=== PATIENT | female | born 1960 | race Caucasian/White ===

== ENCOUNTER 2024-10-15 21:53 | Inpatient (IN) | payer BC, OTHER ==
[~2024-10-15] VITALS: Ht 162.6 cm; Wt 99.4 kg
[2024-10-15] MEDS ORDERED: ALBUTEROL SULFATE 2.5 MG/3 ML NEBU ONE (22:48)
[2024-10-15 22:52] LABS: BASOPHILS # (AUTO) 0.1 K/UL (0.0-0.2); BASOPHILS % (AUTO) 0.6 % (0.0-2.0); EOSINOPHILS # (AUTO) 0.3 K/uL (0.0-0.7); EOSINOPHILS % (AUTO) 3.1 % (0.0-7.0); HEMOGLOBIN 13.3 g/dL (10.9-14.3); LYMPHOCYTES # (AUTO) 1.8 K/uL (0.8-4.8); LYMPHOCYTES % (AUTO) 16.2 % (20.5-51.5); MEAN CORPUSCULAR HEMOGLOBIN 29.2 uug (24.7-32.8); MEAN CORPUSCULAR HGB CONC 34 g/dL (32.3-35.6); MEAN CORPUSCULAR VOLUME 85.6 fL (75.5-95.3); MONOCYTES # (AUTO) 0.7 K/uL (0.1-1.30); MONOCYTES % (AUTO) 6.1 % (0.0-11.0); NEUTROPHILS # (AUTO) 8.4 K/uL (1.8-8.9); PLATELET COUNT (AUTO) 272 K/uL (179-408); RED BLOOD CELL COUNT(AUTO) 4.56 MIL/uL (3.63-4.92); WHITE BLOOD COUNT (AUTO) 11.3 K/uL (3.8-11.8)
[2024-10-15 22:54] LABS: DIFFERENTIAL COMMENT 1
[2024-10-15 23:01] LABS: CALCIUM 8.9 mg/dL (8.5-10.1); CREATININE 0.8 mg/dL (0.6-1.3); POTASSIUM 3.2 mmol/L (3.5-5.1)
[2024-10-15 23:05] VITALS: O2SAT 93
[2024-10-15 23:10] LABS: ABG BASE EXCESS -4.9 mmol/L (-2.0-3.0); ABG HCO3 18.7 mmol/L (21.0-28.0); ABG PCO2 30.8 mmHg (32.0-45.0); ABG PH 7.402 (7.350-7.450); ABG PO2 67.2 mmHg (83.0-108.0); ABG SITE RIGHT RADIAL; ABG TOTAL HEMOGLOBIN 13.4 G/dL (12.0-16.0); AaDO2 93.7 mmHg; COHb 0.5 % (0.5-1.5); MetHb 0.1 % (0.0-1.5)
[2024-10-15 23:13] LABS: ALBUMIN 3.6 g/dL (3.4-5.0); BILIRUBIN,TOTAL 0.6 mg/dL (0.2-1.0); TOTAL PROTEIN, SERUM 7.7 g/dL (6.4-8.2)
[2024-10-15 23:15] VITALS: O2SAT 97
[2024-10-15] MEDS: ALBUTEROL SULFATE 2.5 MG/3 ML NEBU NEB ONE (23:18)
[2024-10-16] VITALS (7 sets, daily range): BP systolic 110–138; BP diastolic 53–75; TEMP 97.6–98.6; O2SAT 92–97
[2024-10-16] MEDS ORDERED: LOSA100T31 PO (00:05)
[2024-10-16] MEDS ORDERED: AMLO10TA59 PO (00:05)
[2024-10-16] MEDS ORDERED: METO-356 PO (00:05)
[2024-10-16] MEDS ORDERED: methylPREDNISolone SOD SUCC 125 MG/2 ML VIAL ONE (01:58)
[2024-10-16] MEDS ORDERED: CEFTRIAXONE /D5W 50ML IVPB **ER PYXIS IV ONE (01:58)
[2024-10-16] MEDS ORDERED: POTASSIUM CHLORIDE 20 MEQ TAB.PRT.SR ONE (01:59)
[2024-10-16] MEDS: methylPREDNISolone SOD SUCC 125 MG/2 ML VIAL IV ONE (02:04)
[2024-10-16] MEDS: POTASSIUM CHLORIDE 20 MEQ TAB.PRT.SR PO ONE (02:04)
[2024-10-16] MEDS: CEFTRIAXONE 1 G in IV DEXTROSE 5% 50 ML IV ONE (02:04)
[2024-10-16 02:08] LABS: *BILIRUBIN,URIN NEGATIVE (NEGATIVE); *CLARITY,URINE CLEAR (CLEAR); *COLOR,URINE YELLOW (YELLOW); *KETONES,URINE NEGATIVE (NEGATIVE); *PROTEIN,URINE NEGATIVE (NEGATIVE); *UROBILINOGEN,URINE 0.2 E.U./dl (NORMAL); LEUKOCYTE ESTERASE ,URINE 1+ (NEGATIVE); NITRITE, URINE NEGATIVE (NEGATIVE); PH,URINE 6.5 (5.0-8.0); UGLUCOSE NEGATIVE (NEGATIVE)
[2024-10-16 02:14] LABS: *BLOOD, URINE TRACE (NEGATIVE)
[2024-10-16 02:30] LABS: BACTERIA,URINE NONE SEEN /HPF (NONE SEEN); RBC,URINE NONE SEEN /HPF (0-3); SQUAMOUS EPITHELIAL CELL,UR FEW /HPF (NONE SEEN); WBC,URINE NONE SEEN /HPF (0-3)
[2024-10-16] MEDS ORDERED: ACETAMINOPHEN 325 MG TABLET PO PRN (02:30)
[2024-10-16] MEDS ORDERED: HYDROCODONE/APAP 5-325MG TABLET PO PRN (02:30)
[2024-10-16] MEDS ORDERED: MAGNESIUM HYDROXIDE 30 ML LIQUID UDC PO PRN (02:30)
[2024-10-16] MEDS ORDERED: ONDANSETRON 4 MG/2 ML VIAL IV PRN (02:30)
[2024-10-16] MEDS ORDERED: TEMAZEPAM 15 MG CAPSULE PO PRN (02:30)
[2024-10-16] MEDS ORDERED: REMEDY ESSENTIAL ZINC PASTE 113 GM TP PRN (02:30)
[2024-10-16] MEDS: PANTOPRAZOLE SODIUM 40 MG TABLET.DR PO SCH (06:19)
[2024-10-16] MEDS: ENOXAPARIN SODIUM 40 MG/0.4 ML DISP.SYRIN SQ SCH (09:00)
[2024-10-16] MEDS ORDERED: MULT-1119 PO (10:30)
[2024-10-16] MEDS ORDERED: CHOL10005 PO (10:30)
[2024-10-16] MEDS ORDERED: [UNRECOGNIZED DRUG - OTHER] PO (10:32)
[2024-10-16] MEDS ORDERED: AMOX-427 PO (16:06)
[2024-10-16] MEDS ORDERED: ALBU8.5H8 INH (16:06)
[2024-10-16] MEDS ORDERED: PRED20TA PO (16:06)
[2024-10-16] MEDS: IV NS 1000 ML 1,000 ML IV PRN (18:02)
[2024-10-16] MEDS ORDERED: CEFTRIAXONE 1 G in IV DEXTROSE 5% 50 ML IV SCH (21:00)
[2024-10-17] MEDS ORDERED: AMLODIPINE 10 MG TABLET PO SCH (09:00)
[2024-10-17] MEDS ORDERED: LOSARTAN POTASSIUM 50 MG TABLET PO SCH (09:00)
[2024-10-17] MEDS ORDERED: METOPROLOL SUCCINATE XL 25 MG TAB.SR.24H PO SCH (09:00)
== END 2024-10-16 20:22 | disposition home or self-care (01) | DRG 202 ==
LOC: ER 21:59 → TELE3 10-16 02:00 → MEDSURG3 10-16 12:20
PROVIDERS: ADMIT Nurse Practitioner Acute Care; ATTEND Nurse Practitioner Acute Care
DX: J20.9 Acute bronchitis, unspecified (principal); J96.01 Acute respiratory failure with hypoxia; N39.0 Urinary tract infection, site not specified; Z90.49 Acquired absence of other specified parts of digestive tract; E66.9 Obesity, unspecified; Z68.37 Body mass index [BMI] 37.0-37.9, adult; I10 Essential (primary) hypertension; Z79.899 Other long term (current) drug therapy
CPT/HCPCS: 36415; 36600; 71045; 82803; 84484; 85025; 87040; 87086; A4606; A4663; G0378; J0696; J1650; J2919; J7040